=== PATIENT | female | born 1980 | race Hispanic/Latino ===

== ENCOUNTER 2020-12-02 08:46 | Inpatient (IN) | payer SELFPAY ==
[~2020-12-02] VITALS: Ht 157.5 cm; Wt 135.2 kg
[2020-12-02 08:48] VITALS: BP 159/91
[2020-12-02] MEDS ORDERED: LACTATED RINGERS 1000ML 1,000 ML IV SCH (09:30)
[2020-12-02] MEDS ORDERED: KETOROLAC 30MG VIAL (30MG/ML) IVP SCH (09:30)
[2020-12-02] MEDS ORDERED: ONDANSETRON 4MG INJ IVP SCH (09:30)
[2020-12-02 09:37] LABS: BASOPHILS % (AUTO) 0.6 % (0.0-5.0); EOSINOPHILS % (AUTO) 1.4 % (0.0-8.0); HEMATOCRIT 42.1 % (36-48); LYMPHOCYTES % (AUTO) 13.6 % (21.0-51.0); MEAN CORPUSCULAR HEMOGLOBIN 27.7 pg (27.0-33.0); MEAN CORPUSCULAR HGB CONC 32.8 g/dL (32.0-36.0); MEAN CORPUSCULAR VOLUME 84.5 fL (79-99); PLATELET COUNT (AUTO) 306 K/uL (130-400); RED BLOOD CELL COUNT(AUTO) 4.98 MIL/uL (4.00-5.50); RED CELL DISTRIBUTION WIDTH 13.3 % (11.0-15.5); WHITE BLOOD COUNT (AUTO) 14.4 K/uL (4.8-10.8)
[2020-12-02 09:38] LABS: APPEARANCE,URINE Clear (CLEAR); BILIRUBIN,URINE Negative (NEGATIVE); COLOR,URINE Yellow (YELLOW); GLUCOSE, URINE (UA) Negative (NEGATIVE); KETONES,URINE 15 mg/dL (NEGATIVE); LEUKOCYTE ESTERASE ,URINE Trace (NEGATIVE); NITRATE,URINE Negative (NEGATIVE); OCCULT BLOOD,URINE Negative (NEGATIVE); PH,URINE 8.5 (5.0-8.0); PROTEIN,URINE POS 1+ mg/dL (NEGATIVE)
[2020-12-02 09:42] LABS: CREATININE 0.9 mg/dL (0.5-1.5); POTASSIUM 3.7 mmol/L (3.5-5.1)
[2020-12-02 09:46] LABS: ALBUMIN 3.7 g/dL (3.5-5.0); BILIRUBIN,TOTAL 0.2 mg/dL (0.2-1.0)
[2020-12-02 09:56] LABS: BACTERIA,URINE Rare /HPF (None Seen); RBC,URINE 0-1 /HPF (0-1); SQUAMOUS EPITHELIAL CELL,UR 0-2 /HPF (0-2); WBC,URINE 0-1 /HPF (0-1)
[2020-12-02] MEDS ORDERED: FENTANYL CITRATE PF 50 MCG/1 ML 2ML VIAL IVP SCH (10:00)
[2020-12-02] MEDS ORDERED: PIP/TAZ ZOSYN 3.375G 3.375 GM VIAL IVPB ONE (10:00)
[2020-12-02] MEDS ORDERED: 0.9%NACL 50ML 50 ML IV SCH (10:30)
[2020-12-02] MEDS ORDERED: ZOSYN 3.375GM +NS 50ML IV SCH (10:30)
[2020-12-02] MEDS ORDERED: MORPHINE 2 MG SYG IVP PRN (10:30)
[2020-12-02] MEDS ORDERED: LACTULOSE 20 GM/30 ML UDCUP PO PRN (11:00)
[2020-12-02] MEDS ORDERED: ACETAMINOPHEN 325 MG TAB PO PRN (11:00)
[2020-12-02] MEDS: LACTATED RINGERS 1000ML 1,000 ML IV SCH ×2 (12:14→15:55)
[2020-12-02] MEDS ORDERED: ZOSYN 3.375GM+NS 50ML 50 ML IV SCH (13:00)
[2020-12-02] MEDS: ZOSYN 3.375GM+NS 50ML 50 ML IV SCH (17:55)
[2020-12-02 17:56] VITALS: BP 154/82
[2020-12-02 19:27] VITALS: BP 144/87
[2020-12-02] MEDS: FAMOTIDINE 20MG VIAL IV SCH (20:56)
[2020-12-02 21:15] VITALS: BP 145/79
[2020-12-02 22:51] VITALS: BP 148/83
[2020-12-02 23:30] VITALS: BP 144/97
[2020-12-03] MEDS: LACTATED RINGERS 1000ML 1,000 ML IV SCH ×3 (02:02→20:12)
[2020-12-03] MEDS: ZOSYN 3.375GM+NS 50ML 50 ML IV SCH ×3 (02:02→19:13)
[2020-12-03 03:53] VITALS: BP 150/89
[2020-12-03 04:32] LABS: BASOPHILS % (AUTO) 0.6 % (0.0-5.0); EOSINOPHILS % (AUTO) 2.9 % (0.0-8.0); HEMATOCRIT 39.1 % (36-48); LYMPHOCYTES % (AUTO) 19.7 % (21.0-51.0); MEAN CORPUSCULAR HEMOGLOBIN 28.2 pg (27.0-33.0); MEAN CORPUSCULAR HGB CONC 32.7 g/dL (32.0-36.0); MEAN CORPUSCULAR VOLUME 86.1 fL (79-99); MONOCYTES % (AUTO) 6.6 % (3.0-13.0); NEUTROPHILS % (AUTO) 69.8 % (40.0-77.0); PLATELET COUNT (AUTO) 276 K/uL (130-400); RED BLOOD CELL COUNT(AUTO) 4.54 MIL/uL (4.00-5.50); RED CELL DISTRIBUTION WIDTH 13.7 % (11.0-15.5); WHITE BLOOD COUNT (AUTO) 12.4 K/uL (4.8-10.8)
[2020-12-03 04:46] LABS: CREATININE 0.8 mg/dL (0.5-1.5); POTASSIUM 3.7 mmol/L (3.5-5.1)
[2020-12-03 08:00] VITALS: BP 164/93
[2020-12-03] MEDS: FAMOTIDINE 20MG VIAL IV SCH ×2 (09:28→21:15)
[2020-12-03] MEDS: ENOXAPARIN SODIUM 40 MG/0.4 ML SYRINGE SQ SCH (09:29)
[2020-12-03 16:11] VITALS: BP 140/78
[2020-12-03 19:33] VITALS: BP 153/103
[2020-12-03 23:47] VITALS: BP 161/88
[2020-12-04] VITALS (28 sets, daily range): BP systolic 123–193; BP diastolic 73–107
[2020-12-04] MEDS: ZOSYN 3.375GM+NS 50ML 50 ML IV SCH ×5 (01:34→18:16)
[2020-12-04] MEDS: FAMOTIDINE 20MG VIAL IV SCH ×2 (08:14→21:26)
[2020-12-04] MEDS: ENOXAPARIN SODIUM 40 MG/0.4 ML SYRINGE SQ SCH (09:00)
[2020-12-04] MEDS ORDERED: DEXAMETHASONE SOD PHOSPHATE 10MG/ML 1ML VIAL ONE (09:08)
[2020-12-04] MEDS ORDERED: LIDOCAINE PF 100MG/5ML (2%) SYRINGE 5ML ONE (09:08)
[2020-12-04] MEDS ORDERED: GLYCOPYRROLATE 1 MG/5 ML SYRINGE ONE (09:08)
[2020-12-04] MEDS ORDERED: ONDANSETRON 4MG INJ ONE ×2 (09:08→11:11)
[2020-12-04] MEDS ORDERED: SUCCINYLCHOLINE CHLORIDE 20 MG/ML 10 ML VIAL ONE (09:08)
[2020-12-04] MEDS ORDERED: PROPOFOL 10 MG/ML 20ML VIAL IV ONE (09:09)
[2020-12-04] MEDS ORDERED: MIDAZOLAM HCL 1 MG/ML 2ML VIAL ONE (09:09)
[2020-12-04] MEDS ORDERED: FENTANYL CITRATE PF 50 MCG/1 ML 2ML VIAL ONE ×2 (09:09→10:27)
[2020-12-04] MEDS ORDERED: NEOSTIGMINE 5MG/5ML SYR IV ONE (09:09)
[2020-12-04] MEDS ORDERED: ROCURONIUM 10MG/1ML SYR 10 MG/ML ML ONE (09:09)
[2020-12-04] MEDS ORDERED: MEPERIDINE-PF 25 MG/ML SYG ONE (09:11)
[2020-12-04] MEDS ORDERED: BUPIVACAINE/PF 0.5% 30ML VIAL ONE (09:12)
[2020-12-04] MEDS ORDERED: LABETALOL 20MG VIAL IV ONE (09:47)
[2020-12-04] MEDS: LACTATED RINGERS 1000ML 1,000 ML IV SCH ×3 (10:07→22:18)
[2020-12-04] MEDS ORDERED: LIDOCAINE HCL-MPF 1% 5ML AMP IJ ONE (10:25)
[2020-12-04] MEDS ORDERED: SUGAMMADEX SODIUM 200 MG/2 ML VIAL IV ONE (10:33)
[2020-12-04] MEDS ORDERED: HYDRALAZINE 20MG/ML VIAL ONE (11:03)
[2020-12-04] MEDS: ONDANSETRON 4MG INJ IVP PRN ×2 (11:13→12:04)
[2020-12-04] MEDS ORDERED: HYDRALAZINE 20MG/ML VIAL IV PRN (11:30)
[2020-12-04] MEDS ORDERED: MORPHINE 4 MG SYG IM PRN (12:00)
[2020-12-04] MEDS: ACETAMINOPHEN WITH CODEINE 1 TAB TAB PO PRN ×2 (13:21→19:53)
[2020-12-04] MEDS ORDERED: LOSARTAN 25 MG TABLET PO SCH (21:00)
[2020-12-05] VITALS: BP 119/73
[2020-12-05] MEDS: ZOSYN 3.375GM+NS 50ML 50 ML IV SCH ×2 (02:53→11:00)
[2020-12-05] MEDS: LACTATED RINGERS 1000ML 1,000 ML IV SCH (03:03)
[2020-12-05 04:00] VITALS: BP 131/81
[2020-12-05 05:49] LABS: HEMATOCRIT 36.9 % (36-48); MEAN CORPUSCULAR HEMOGLOBIN 28.1 pg (27.0-33.0); MEAN CORPUSCULAR HGB CONC 33.3 g/dL (32.0-36.0); MEAN CORPUSCULAR VOLUME 84.4 fL (79-99); RED BLOOD CELL COUNT(AUTO) 4.37 MIL/uL (4.00-5.50); RED CELL DISTRIBUTION WIDTH 13.8 % (11.0-15.5); WHITE BLOOD COUNT (AUTO) 15.4 K/uL (4.8-10.8)
[2020-12-05 06:09] LABS: BILIRUBIN,TOTAL 0.2 mg/dL (0.2-1.0); CREATININE 0.8 mg/dL (0.5-1.5); POTASSIUM 3.7 mmol/L (3.5-5.1); TOTAL PROTEIN, SERUM 6.9 g/dL (6.0-8.3)
[2020-12-05 08:19] VITALS: BP_SYST 148; BP_SYST 173; BP_DIAS 75; BP_DIAS 87
[2020-12-05] MEDS: ENOXAPARIN SODIUM 40 MG/0.4 ML SYRINGE SQ SCH (09:04)
[2020-12-05] MEDS: FAMOTIDINE 20MG VIAL IV SCH (09:04)
[2020-12-05] MEDS: ACETAMINOPHEN WITH CODEINE 1 TAB TAB PO PRN (09:05)
[2020-12-05 11:52] VITALS: BP 157/81
[2020-12-05] MEDS ORDERED: AMOX-426 PO (15:47)
== END 2020-12-05 18:00 | disposition home or self-care (01) | DRG 418 ==
LOC: EDH 08:46 → OBSVTOIN 08:48 → EDHIP 08:48 → UNDOADMOB 10:20 → EDHIP 10:20 → 3AH 22:23
PROVIDERS: ADMIT Hospitalist; ATTEND Hospitalist
PROC: 0FT44ZZ Resection of Gallbladder, Percutaneous Endoscopic Approach (ICD-10-PCS; principal; 2020-12-04 09:10)
DX: K80.00 Calculus of gallbladder with acute cholecystitis without obstruction (principal); Z68.43 Body mass index [BMI] 50.0-59.9, adult; E66.01 Morbid (severe) obesity due to excess calories; K76.0 Fatty (change of) liver, not elsewhere classified; D72.829 Elevated white blood cell count, unspecified; Z20.822 Contact with and (suspected) exposure to COVID-19
CPT/HCPCS: 36415; 76705; 78226; 80048; 80053; 81001; 81025; 82150; 83690; 85025; 85027; 87635; A9537; G0378; J0330; J0360; J1100; J1650; J1885; J2001; J2175; J2250; J2405; J2543; J2704; J2710; J3010; J3490; J7030; J7120